=== PATIENT | male | born 1975 | race Caucasian/White ===

== ENCOUNTER → 2019-11-17 14:23 | Outpatient (CLI) | payer OTHER, SELFPAY | PROVIDERS: Visit Provider Physician Assistant | DX: J02.9 Acute pharyngitis, unspecified (principal) | CPT/HCPCS: 87070 ==

== ENCOUNTER 2019-12-05 23:23 | Emergency (ER) | payer OTHER, SELFPAY ==
--- NOTE | 2019-12-05 23:33 | DI.CT.S_ITS ---
PROCEDURE: CT HEAD/BRAIN WO CON INDICATIONS: syncope x2 TECHNIQUE: Noncontrast 4.5 mm thick angled axial sections acquired from the foramen magnum to the vertex, with coronal and sagittal reformats. For radiation dose reduction, the following was used: automated exposure control, adjustment of mA and/or kV according to patient size. COMPARISON: [facility], MR, BRAIN W&WO CONTRAST, 01/30/2013, 18:26. FINDINGS: Image quality: Diagnostic. CSF spaces: Basal cisterns are patent. No extra-axial fluid collections. Ventricles are normal in size and shape. Brain: No midline shift. No intracranial masses or hemorrhage. Donald-white matter interface is normal. Skull and face: Calvarium and visualized facial bones are intact, without suspicious lesions. Sinuses: Visualized sinuses and mastoids are clear. IMPRESSION: Negative head CT. No acute intracranial hemorrhage. Note: The preliminary report provided by [facility] is concordant with the final report. Dictated by: Dean Novak M.D. on 12/06/2019 at 8:35 Approved by: Dean Novak M.D. on 12/06/2019 at 8:37
--- NOTE | 2019-12-05 23:33 | DI.RAD.S_ITS ---
PROCEDURE: XR CHEST 1V INDICATIONS: syncope x2 TECHNIQUE: One view of the chest was acquired. COMPARISON: None. FINDINGS: Surgical changes and devices: None. Lungs and pleura: Lungs are clear. No pleural effusions or pneumothorax. Mediastinum: Mediastinal contours appear normal. Heart size is normal. Bones and chest wall: No suspicious bony lesions. Overlying soft tissues appear unremarkable. IMPRESSION: Negative chest. No acute cardiopulmonary process is evident. Dictated by: Dean Novak M.D. on 12/06/2019 at 0:31 Approved by: Dean Novak M.D. on 12/06/2019 at 0:31
[2019-12-05 23:35] VITALS: BP 111/74; PULSE 83; RESP 17; TEMP 36.4; O2SAT 98; BMI 30.6
[2019-12-05 23:49] LABS: Add Manual Diff / Slide Review NO; Basophils Absolute Auto 100 /uL (0-100); Eosinophils Absolute Auto 100 /uL (0-450); Eosinophils Percent Auto 0.7 % (2-4); Hematocrit 43.2 % (41-53); Hemoglobin 14.8 g/dL (13.5-17.5); Lymphocytes Absolute Auto 1800 /uL (1100-4500); Lymphocytes Percent Auto 20.1 % (25-40); Mean Corpuscular HGB Conc 34.3 % (30-36); Mean Corpuscular Hemoglobin 30.7 PG (26-34); Mean Corpuscular Volume 89.7 fL (80-100); Monocytes Absolute Auto 600 /uL (0-900); Monocytes Percent Auto 6.6 % (3-14); Neutrophils Absolute Auto 6300 /uL (1500-7000); Neutrophils Percent Auto 71.6 % (50-75); Platelet Count 281 X10^3/uL (150-400); Red Blood Cell Count 4.82 X10^6/uL (4.5-5.9); Red Cell Distribution Width 13.5 % (11.6-14.8); White Blood Cell Count 8.8 X10^3/uL (4.5-11.0)
[2019-12-06] LABS: Alanine Aminotransferase 22 IU/L (<50); Albumin 4.4 g/dL (3.5-5.0); Albumin Globulin Ratio 1.4 (1.0-2.8); Alkaline Phosphatase 81 U/L (38-126); Aspartate Aminotransferase 28 IU/L (17-59); Bilirubin Total 0.6 mg/dL (0.2-1.3); Blood Urea Nitrogen 22 mg/dL (9-20); Calcium 8.9 mg/dL (8.4-10.2); Carbon Dioxide 25 mmol/L (22-32); Chloride 101 mmol/L (98-107); Creatine Kinase 94 U/L (55-170); Estimated Glomerular Filt Rate > 60.0 mL/min (>60); Globulin 3.1 g/dL (1.7-4.1); Glucose 150 mg/dL (70-100); HEMOLYSIS 20 (0-50); Magnesium 2.2 mg/dL (1.6-2.3); Potassium 3.7 mmol/L (3.4-5.1); Sodium 139 mmol/L (137-145); Total Protein 7.5 g/dL (6.3-8.2)
[2019-12-06 00:03] LABS: Ethanol (ETOH) 145 mg/dL
[2019-12-06] MEDS: SODIUM CHLORIDE 0.9% 1,000 ML 1000 ML IV (00:07)
[2019-12-06 00:12] LABS: Troponin I < 0.012 ng/mL (0.01-0.034)
--- NOTE | 2019-12-06 00:39 | ED_ITS ---
HPI - Syncope General Chief Complaint: Syncope Stated Complaint: Syncope Time Seen by Provider: 12/06/19 00:38 Source: patient and EMS Mode of arrival: EMS History of Present Illness HPI narrative: Chief complaint: Syncope History of present illness: The patient is a 44-year-old male who was had a bar drinking alcohol slipped fell twisting in tweaking his right knee. He denied any head trauma or head injury. However he had pain and discomfort and briefly passed out. The patient later approximately 30 minutes was standing outside with some friends leaning up against a refrigerator when he again passed out. He denies any racing of his heart palpitations dizziness or heart murmur. He admits to drinking alcohol every day. He smokes cigarettes and marijuana but does not use any other drugs. The 2nd time when he passed out he felt lightheaded. However he did not have any headache. He complains of mild discomfort in his right knee. He denies any headache numbness tingling paresthesias and dysesthesias or paresis. He has had no troubles with his vision no change in vision loss of vision or diplopia. He denies any chest pain cough shortness of breath abdominal pain nausea or vomiting. He however states that he has had diarrhea without melena or hematochezia for the last several days prior to admission. The patient has also been fasting trying to lose weight eating only 1 meal per day. He denies any urinary symptoms. Related Data Home Medications Medication Instructions Recorded Confirmed multivitamin [Multiple Vitamins] 1 tab PO QDAY #0 07/25/17 11/17/19 Previous Rx's Medication Instructions Recorded amoxicillin 875 mg-potassium 1 tab PO BID #20 tab 11/17/19 clavulanate 125 mg tablet loperamide 2 mg PO Q4H PRN #14 tab 12/06/19 naproxen [Naprosyn] 500 mg PO BID PRN #20 tab 12/06/19 Allergies Allergy/AdvReac Type Severity Reaction Status Date / Time No Known Allergies Allergy Uncoded 11/17/19 13:56 Review of Systems Review of Systems ROS Unobtainable: All systems reviewed & are unremarkable except as noted in HPI and below Patient History Medical History Pharyngitis (Acute) Social History Smoking Status: Current some day smoker Smoking Status: Current some day smoker alcohol intake frequency: 3 or more drinks per day Alcohol type: beer Substance Use Type: marijuana Exam Narrative Exam Narrative: PHYSICAL EXAM: CONSTITUTIONAL: Awake, Alert, Oriented, Coherent, Cooperative in NAD. Does not appear toxic or ill. HEAD: AT/NC EENT: PERRL, FROM of eyes, no discharge, with a mild horizontal nystagmus. No drainage from the ears, Tympanic membranes intact bilaterally, clear EAC No epistaxis or nasal drainage Oral mucosa is moist and pink, posterior pharynx is without erythema or exudate. NECK: Supple, no obvious JVD, Trachea is midline without stridor, no palpable LN or masses. SPINE: No gross deformity, no palpable tenderness of the cervical, thoracic, lumbar or sacral spine. No CVA tenderness. THORAX: No deformity, retractions, chest wall tenderness, subcutaneous air or crepitice. LUNGS: Clear with symmetrical breath sounds without respiratory distress HEART: Normal heart tones, regular rhythm and rate without murmur. ABDOMEN: Soft, non-tender, normal bowel sounds without guarding, rebound, rigidity or palpable mass or organomegaly. EXTREMITIES: No edema, cyanosis, deformity or tenderness. The patient has full flexion extension of his right knee. The patient is tender to palpation along the medial joint line and the medial condyle of the femur as the quadriceps in tarts. There is no gross swelling erythema or bruising noted at this time. SKIN: No rash, bruising, petechiae or purpura. NEURO: Awake, alert, oriented, conversive, cranial nerves II-XII are symmetrical and normal, moves all 4 extremities and is ambulatory Initial Vital Signs Initial Vital Signs: Vital Signs Temperature 97.6 F 12/05/19 23:35 Pulse Rate 83 12/05/19 23:35 Respiratory Rate 17 12/05/19 23:35 Blood Pressure 111/74 12/05/19 23:35 Pulse Oximetry 98 12/05/19 23:35 Course Course Course Narrative: [address] reveals no acute disease in the brain no acute pathology or trauma. The patient's syncope is secondary to dehydration fasting and his alcohol intoxication. I will discuss with the patient and the princess baer who just entered the room to see whether not she will take him. 0325 examination of the patient's right knee the patient has full flexion and extension over the medial side superior knee is tender over the insertion of the quadriceps. The patient is tender over palpation over the medial joint line. The patient appears to have an acute sprain of the knee. It will need to be re- evaluated after the acute injury to test the for fall laxity of the joint. The lady with the patient is willing to accept responsibility and dump take the patient home. Orders Ordered: Discontinued Medications Sodium Chloride (Normal Saline 0.9%) 1,000 mls @ 1,000 mls/hr IV BOLUS ONE Stop: 12/06/19 00:32 Last Infusion: 12/06/19 02:33 Dose: 0 mls/hr Documented by: Admin: 12/06/19 00:07 Dose: 1,000 mls/hr Documented by: OFELIA Vital Signs Vital signs: Vital Signs - 8 hr 12/05/19 23:35 12/06/19 01:00 12/06/19 01:27 Temperature 97.6 F Pulse Rate 83 88 Pulse Rate [Orthostatic Lying] 94 H Pulse Rate [Orthostatic Sitting] 99 H Pulse Rate [Orthostatic Standing] 91 H Respiratory Rate 17 23 Blood Pressure 111/74 Blood Pressure [Left Arm] 143/80 H Blood Pressure [Orthostatic Lying] 137/84 Blood Pressure [Orthostatic Sitting] 136/81 Blood Pressure [Orthostatic Standing] 130/87 Pulse Oximetry 98 100 MDM - Syncope Medical Records Attestation: I reviewed the patient's medical records. Lab Data Attestation: I reviewed the patient's lab results. Result diagrams: 12/05/19 23:40 12/05/19 23:40 Labs: Lab Results 12/05/19 12/05/19 Range/Units 23:40 23:40 WBC 8.8 (4.5-11.0) X10^3/uL RBC 4.82 (4.5-5.9) X10^6/uL Hgb 14.8 (13.5-17.5) g/dL Hct 43.2 (41-53) % MCV 89.7 (80-100) fL MCH 30.7 (26-34) PG MCHC 34.3 (30-36) % RDW 13.5 (11.6-14.8) % Plt Count 281 (150-400) X10^3/uL Neut % (Auto) 71.6 (50-75) % Lymph % (Auto) 20.1 L (25-40) % Ralls % (Auto) 6.6 (3-14) % Eos % (Auto) 0.7 L (2-4) % Baso % (Auto) 1.0 (0-2) % Neut # (Auto) 6300 (1323-1060) /uL Lymph # (Auto) 1800 (3607-3791) /uL Ralls # (Auto) 600 (0-900) /uL Eos # (Auto) 100 (0-450) /uL Baso # (Auto) 100 (0-100) /uL Sodium 139 (137-145) mmol/L Potassium 3.7 (3.4-5.1) mmol/L Chloride 101 (98-107) mmol/L Carbon Dioxide 25 (22-32) mmol/L BUN 22 H (9-20) mg/dL Creatinine 1.10 (0.66-1.25) mg/dL Estimated GFR > 60.0 (>60) mL/min BUN/Creatinine Ratio 20.0 (6-22) Glucose 150 H (70-100) mg/dL Calcium 8.9 (8.4-10.2) mg/dL Magnesium 2.2 (1.6-2.3) mg/dL Total Bilirubin 0.6 (0.2-1.3) mg/dL AST 28 (17-59) IU/L ALT 22 (<50) IU/L Alkaline Phosphatase 81 (38-126) U/L Total Creatine Kinase 94 (55-170) U/L CK-MB (CK-2) TNP CK-MB (CK-2) Rel Index TNP Troponin I < 0.012 (0.01-0.034) ng/mL Total Protein 7.5 (6.3-8.2) g/dL Albumin 4.4 (3.5-5.0) g/dL Globulin 3.1 (1.7-4.1) g/dL Albumin/Globulin Ratio 1.4 (1.0-2.8) Ethyl Alcohol 145 H ( - 10) mg/dL ECG Data Attestation: I personally reviewed and interpreted this ECG as follows: MDM Narrative Medical decision making narrative: The patient's EKG obtained at 23:3 12:53 a.m. reveals a sinus rhythm with a ventricular rate of 75. The patient has low voltage QRS in his precordial leads. Intervals are normal. QTC is normal at 408 milliseconds. The patient has a normal access. T-waves are inverted in herson ds V1. Otherwise there are no acute diagnostic ST segment changes. The patient has an incomplete right bundle branch block with a QRS of 109 milliseconds. Discharge Plan Departure Patient Disposition: Home Clinical Impression: Dehydration Diarrhea Qualifiers: Diarrhea type: unspecified type Qualified Code(s): R19.7 - Diarrhea, unspecified Alcohol intoxication Qualifiers: Complication of substance-induced condition: with unspecified complication Qualified Code(s): F10.929 - Alcohol use, unspecified with intoxication, unspecified Syncope Qualifiers: Syncope type: unspecified Qualified Code(s): R55 - Syncope and collapse Right knee sprain Qualifiers: Encounter type: initial encounter Involved ligament of knee: unspecified ligament Qualified Code(s): S83.91XA - Sprain of unspecified site of right knee, initial encounter Discharge Date/Time: 12/06/19 04:40 Instructions: DI for Syncope in Adults (Fainting), Diarrhea, Alcohol Use Disorder, DI for Dehydration -- Adult Activity Restrictions/Additional Instructions: It will take 78 hours for your alcohol to completely clear your system. For the pain and discomfort use Naprosyn 500 mg twice a day. For dehydration you need to drink 2-3 L of fluid per day. You need to follow-up with your primary care physician to re-evaluate your knee. To keep it from swelling we will wrap it with an Flaco wrap. For your tail bone discomfort obtain a comfort donut to sit if the discomfort continues. Prescriptions: New naproxen [Naprosyn] 500 mg tablet 500 mg PO BID PRN (Reason: pain) Qty: 20 RF: 0 loperamide 2 mg tablet 2 mg PO Q4H PRN (Reason: loose stool) Qty: 14 RF: 0 No Action amoxicillin-pot clavulanate [Augmentin] 875-125 mg tablet 1 tab PO BID Qty: 20 RF: 0 multivitamin [Multiple Vitamins] 1 EACH tablet 1 tab PO QDAY Qty: 0 RF: 0 Referrals: Rc Love MD [Primary Care Provider] -
[2019-12-06 01:00] VITALS: BP 143/80; PULSE 88; RESP 23; O2SAT 100
[2019-12-06 01:27] VITALS: BP 130/87; BP 136/81; BP 137/84; PULSE 91; PULSE 94; PULSE 99
[2019-12-06 03:30] VITALS: BP 141/84; PULSE 88; RESP 17; O2SAT 96
[2019-12-06 04:40] VITALS: BP 138/85; PULSE 98; RESP 15; O2SAT 97
== END 2019-12-06 04:40 | disposition home or self-care (01) ==
PROVIDERS: Emergency Provider Emergency Medicine; PCP Family Medicine
DX: E86.0 Dehydration (principal); R19.7 Diarrhea, unspecified; F10.929 Alcohol use, unspecified with intoxication, unspecified; R55 Syncope and collapse; S83.91XA Sprain of unspecified site of right knee, initial encounter
CPT/HCPCS: 36415; 70450; 71045; 80053; 80320; 82550; 82553; 83735; 84484; 85025; 93005; 96360; 96361; 99284; 99285

== ENCOUNTER → 2023-04-22 15:27 | Outpatient (CLI) | payer OTHER, SELFPAY ==
--- NOTE | 2023-04-22 | DI.US.S_ITS ---
PROCEDURE: US ABDOMEN LIMITED INDICATIONS: UMBILICUS LUMP ?HERNIA TECHNIQUE: Real-time scanning was performed of the umbilicus, with image documentation. COMPARISON: None. FINDINGS: Targeted ultrasound of the umbilicus demonstrates a fat containing, partially reducible hernia. The neck measures 2.2 x 1.9 cm. The sac measures 3.6 x 3.8 x 1.5 cm. IMPRESSION: Fat containing, partially reducible hernia. Dictated by: Jose Bhatia M.D. on 04/22/2023 at 16:55 Approved by: Jose Bhatia M.D. on 04/22/2023 at 16:55
== END ==
PROVIDERS: PCP Family Medicine; Referring Provider Family Medicine; Visit Provider Family Medicine
DX: K42.9 Umbilical hernia without obstruction or gangrene (principal)
CPT/HCPCS: 76705

== ENCOUNTER 2023-05-01 07:18 | Day surgery (SDC) | payer OTHER, SELFPAY ==
[2023-04-26 08:45] VITALS: BMI 33.0
[2023-05-01] VITALS (9 sets, daily range): BP systolic 114–152; BP diastolic 74–99; PULSE 14–89; RESP 14–18; TEMP 35.8–36.6; O2SAT 92–96; BMI 33.0
[2023-05-01] MEDS: LACTATED RINGERS 1,000 ML 100 ML IV ×2 (08:10→09:44)
--- NOTE | 2023-05-01 08:32 | PM.PREOP ---
Pre-operative Note Interval Note History & Physical reviewed/Exam performed by Physician: Yes Changes to H&P: No
--- NOTE | 2023-05-01 08:49 | P.OP_ITS ---
Operative Date/Time/Diagnoses Date of procedure: 05/01/23 Time of procedure: 08:49 Pre-op diagnosis: ventral hernia colorectal screening Post-op diagnosis: same Procedure & Clinicians Procedure: open ventral hernia repair ( cm) colonoscopy Same procedure as scheduled: Yes Indications: symptomatic ventral hernia Surgeon: Robson Taylor Click Yes if Unassisted: Yes Anesthesia Type: General Operative Notes Findings: 5 cm fascial defects superior to the umbilicus Specimen(s): none sent Estimated Blood Loss (mL): 25 Procedure in detail: Patient was brought to the operating room placed supine on the table. Bilateral lower extremity compression devices were applied. General anesthesia was induce d he was intubated with an endotracheal tube. He received Ancef prior to skin incision. Time-out was performed. He was prepped and draped in sterile fashion. A vertical midline incision was made just superior to the umbilicus. The subcutaneous tissue was divided. We encountered the hernia defect which was approximately 5 cm in length. The defect was coming from just superior to the umbilicus. Fascia was opened the hernia sac was excised. It contained omentum only. The adhesions to the anterior abdominal wall were taken down in order to clear space for the mesh. The 8 x 12 Bard Ventralex mesh was then placed into the abdominal cavity with the anti-adhesive surface down. This provided excellent overlap in all directions. The mesh was then secured to the fascia using interrupted Ethibond suture. The fascia was then closed over the mesh with interrupted Ethibond suture. Subcutaneous tissue was reapproximated with 3-0 Vicryl and the skin was closed with a running Monocryl suture followed by Dermabond. He tolerated the procedure well. Next the colonoscopy was performed. The colonoscope was inserted into the rectum and was advanced forward to the cecum. The scope was then slowly withdrawn examining the mucosal folds in all directions. The colon was notable only for sigmoid diverticulosis. There were no polyps or masses. The withdrawal time was 7 minutes. Complications: none Post-operative Condition: stable Disposition: same day surgery
[2023-05-01] MEDS: CEFAZOLIN 2 GM/100 ML PREMIX 100 ML IV (08:55)
[2023-05-01] MEDS: BUPIVACAINE 0.25% (PF) VIAL 30 ML INJ (09:05)
--- NOTE | 2023-05-01 09:06 | SUR.OPER ---
Supine on padded OR bed, head on gel donut, arms secured on padded arm boards at <90 degrees abduction, legs uncrossed, safety belt at thigh, tape over blanket over lower legs.
[2023-05-01] MEDS: OXYCODONE/ACETAMINOPHEN 5/325 TABLET 1 TAB PO ×2 (10:43→10:59)
== END 2023-05-01 11:50 | disposition home or self-care (01) ==
PROVIDERS: PCP Family Medicine; Referring Provider Surgery; Visit Provider Surgery
PROC: (CPT 49593; principal; 2023-05-01 08:45)
PROC: 0DJD8ZZ Inspection of Lower Intestinal Tract, Via Natural or Artificial Opening Endoscopic (ICD-10-PCS; CPT 45378; 2023-05-01 08:45)
DX: K43.9 Ventral hernia without obstruction or gangrene (principal); Z12.11 Encounter for screening for malignant neoplasm of colon; K57.30 Diverticulosis of large intestine without perforation or abscess without bleeding
CPT/HCPCS: 49593; 45378; 82962; J0330; J0690; J1100; J1885; J2405; J2704; J3010; J3490

== ENCOUNTER 2023-05-03 05:37 | Emergency (ER) | payer OTHER, SELFPAY ==
[2023-05-03 05:42] VITALS: BP 139/85; PULSE 93; RESP 18; TEMP 36.2; O2SAT 97; BMI 33.0
--- NOTE | 2023-05-03 05:46 | ED.ABDPAIN ---
HPI - Abdominal Pain General Chief Complaint: Abdominal Pain Stated Complaint: constipated post hernia surgery Time Seen by Provider: 05/03/23 05:44 Source: patient Mode of arrival: Ambulatory Limitations: no limitations History of Present Illness HPI narrative: This is a 47-year-old male 2 days postop from ventral hernia repair on 05/01/2023. Patient states he has not had a bowel movement since his hernia surgery. He states he has been drinking fluids eating small meals and taking medication to help him have bowel movements. He states he has been avoiding any narcotics to prevent movement of his bowels. He states he does not feel like there is any stool in the rectal vault but that things are higher up and he is become increasingly distended with increasing abdominal pain and discomfort. He denies fevers but states he got very sweaty this morning when he tried to have a bowel movement. He denies chest pain or pressure, no shortness of breath. He denies any nausea or vomiting. He states he has been passing gas. Patient states no dysuria urgency or frequency or urinary retention. No back or flank pain. His bandage over his incision does have some blood he thinks that maybe new today. Patient has not appreciate any drainage or leakage outside of the bandage. Are some color changes inferior to the incision and he states he did not note if those are new or occurred after the surgery. Patient states no daily medications. He states remote history of appendectomy. Denies tobacco, alcohol or illicit. Denies any drug allergies. Dr. Taylor performed his surgery. Related Data Home Medications Medication Instructions Recorded Confirmed fluticasone propionate 50 1 spray intranasal DAILY 04/25/23 05/01/23 mcg/actuation nasal spray,suspension Previous Rx's Medication Instructions Recorded acetaminophen 325 mg capsule 650 mg PO QID PRN pain #60 caps 05/01/23 (Tylenol) docusate sodium 100 mg capsule 100 mg PO BID #30 caps 05/01/23 (Colace) ibuprofen 200 mg tablet 400 mg PO Q6H #60 tabs 05/01/23 oxycodone 5 mg tablet 5 mg PO Q6H PRN pain #20 tabs 05/01/23 Allergies Allergy/AdvReac Type Severity Reaction Status Date / Time No Known Allergies Allergy Uncoded 04/25/23 15:18 Review of Systems Review of Systems ROS Unobtainable: All systems reviewed & are unremarkable except as noted in HPI and below Patient History Medical History Pharyngitis Surgical History History of appendectomy Hx of tonsillectomy Social History marital status: unmarried,single details: LIVES WITH SON household members: friend(s) lives independently: Yes occupational status: employed Smoking Status: Former smoker alcohol intake: current substance use type: does not use Smoking Status: Former smoker alcohol intake frequency: a few times a week Alcohol type: beer Substance Use Type: does not use Exam Narrative Exam Narrative: GENERAL: Alert and oriented x three, obese male in [id number] distress. HEENT: Head normocephalic, atraumatic, EOMI, pupils reactive, face symmetric, moist mucous membranes NECK: Supple, full range of motion CARDIOVASCULAR: Regular rate and rhythm without murmurs, rubs or gallops. RESPIRATORY: Breath sounds equal bilaterally, no wheezes rales or rhonchi. ABDOMEN: Soft, distended. Patient has [id number] lower abdominal tenderness. Hypoactive bowel sounds all 4 quadrants. No guarding or rebound, rigidity, no mass, patient has been line incision appears intact but there is some serosanguineous drainage proximally 10 mL at the umbilicus area. I can not appreciate any obvious dehiscence but incision does track over the umbilicus. No purulent drainage. Small amount of drainage occurs when pressing on the abdomen. Patient does have what appears to be some ecchymosis but is more erythematous in discoloration of the lower abdomen extending about 10 cm bilaterally by about 5 cm. No warmth. No fluctuance. : No CVA tenderness EXTREMITIES: Normal range of motion, no clubbing or edema. Neurovascularly intact NEUROLOGICAL: Cranial nerves II through XII grossly intact. Moving all extremities SKIN: Warm, dry, no petechiae, no rashes or lesions otherwise noted. Initial Vital Signs Initial Vital Signs: Vital Signs Temperature 97.1 F L 05/03/23 05:42 Pulse Rate 93 H 05/03/23 05:42 Respiratory Rate 18 05/03/23 05:42 Blood Pressure 139/85 05/03/23 05:42 Pulse Oximetry 97 05/03/23 05:42 Oxygen Delivery Method Room Air 05/03/23 05:42 Course Orders Ordered: Discontinued Medications Sodium Chloride (Normal Saline 0.9%) 1,000 mls @ 1,000 mls/hr IV BOLUS ONE Stop: 05/03/23 06:57 Last Infusion: 05/03/23 07:12 Dose: 0 mls/hr Documented By: Admin: 05/03/23 06:09 Dose: 1,000 mls/hr Documented By: [facility] Vital Signs Vital signs: Vital Signs - 8 hr 05/03/23 05:42 Temperature 97.1 F L Pulse Rate 93 H Respiratory Rate 18 Blood Pressure 139/85 Pulse Oximetry 97 Oxygen Delivery Method Room Air MDM - Abdominal Pain Lab Data 05/03/23 06:05 05/03/23 06:05 Labs: Lab Results 05/03/23 05/03/23 Range/Units 06:05 06:05 WBC 10.7 (4.5-11.0) X10^3/uL RBC 4.89 (4.5-5.9) X10^6/uL Hgb 14.7 (13.5-17.5) g/dL Hct 42.2 (41-53) % MCV 86.3 (80-100) fL MCH 30.0 (26-34) PG MCHC 34.8 (30-36) % RDW 13.8 (11.6-14.8) % Plt Count 238 (150-400) X10^3/uL Neut % (Auto) 72.7 (50-75) % Lymph % (Auto) 20.1 L (25-40) % [place] % (Auto) 5.8 (3-14) % Eos % (Auto) 0.6 L (2-4) % Baso % (Auto) 0.8 (0-2) % Neut # (Auto) 7800 H (3703-9305) /uL Lymph # (Auto) 2200 (7332-0982) /uL [place] # (Auto) 600 (0-900) /uL Eos # (Auto) 100 (0-450) /uL Baso # (Auto) 100 (0-100) /uL Sodium 137 (137-145) mmol/L Potassium 3.7 (3.4-5.1) mmol/L Chloride 104 (98-107) mmol/L Carbon Dioxide 23 (22-32) mmol/L BUN 15 (9-20) mg/dL Creatinine 0.94 (0.66-1.25) mg/dL Estimated GFR > 60 (>60) mL/min BUN/Creatinine Ratio 16.0 (6-22) Glucose 116 H (70-100) mg/dL Calcium 8.6 (8.4-10.2) mg/dL Total Bilirubin 0.7 (0.2-1.3) mg/dL AST 29 (17-59) IU/L ALT 31 (<50) IU/L Alkaline Phosphatase 68 (38-126) U/L Total Protein 7.3 (6.3-8.2) g/dL Albumin 4.2 (3.5-5.0) g/dL Globulin 3.1 (1.7-4.1) g/dL Albumin/Globulin Ratio 1.4 (1.0-2.8) Lipase 74 (23-300) U/L Imaging Data CT scan - abdomen/pelvis: Radiologist's Impression: Mild wall thickening of small bowel G since a recent surgical site could represent edema or enteritis, no recurrent or residual hernia no high-grade bowel obstruction appreciated small amount of gas and fluid in the anterior abdominal wall appears within normal limits at 3 days postoperative. Small amount of free fluid in the right pericolic gutter and right lower quadrant. [facility] Narrative Medical decision making narrative: This is a 47 old male who presents with complaint of 2 days postop from ventral hernia repair with constipation increasing distention abdominal pain. On examination patient's incision does appear to be intact but there is a small amount of bloody drainage. Patient has quite a bit of bruising just below the abdomen. No obvious cellulitis. Patient got quite sweaty this morning and decision for labs, fluids and imaging was made. Labs are overall appropriate, patient was given fluids, CT shows some mild wall thickening small bowel adjacent to surgical site could be edema versus enteritis but no recurrent hernia high-grade bowel obstruction and gas and fluid in the anterior wall appear normal limits for 3 days postop. Patient notes no sensation of stool in rectal vault, all seems higher up. Labs glucose of 116 no other major abnormalities. Imaging was reviewed with patient. Discussed with patient to continue fluids, bowel regimen and return precautions. Patient feeling improved in department. Comfortable with plan. Discharge Plan Departure Patient Disposition: Home Clinical Impression: Constipation, Status post hernia repair Instructions: DI for Constipation Activity Restrictions/Additional Instructions: Follow-up for recheck. Continue with Colace twice daily, I would recommend adding MiraLax as well. It may be helpful to add a glycerin suppository if you feel there stool at the rectal opening. Gentle movement and walking can also aid bowel movements. Make sure you are drinking plenty of fluids and eating high-fiber foods. Please return for fevers, worsening abdominal pain, vomiting, if you are not having a bowel movement and not passing any gas or flatus, few have any redness, swelling or increasing drainage from your incision. Prescriptions: No Action fluticasone propionate 50 mcg/actuation spray,suspension 1 spray intranasal DAILY Rx Instructions: administer into each nostril docusate sodium [Colace] 100 mg capsule 100 mg PO BID Qty: 30 0RF ibuprofen 200 mg tablet 400 mg PO Q6H Qty: 60 0RF oxycodone 5 mg tablet 5 mg PO Q6H PRN (Reason: pain) Qty: 20 0RF acetaminophen [Tylenol] 325 mg capsule 650 mg PO QID PRN (Reason: pain) Qty: 60 0RF Referrals: Niles Dumont MD [Primary Care Provider] - Stand Alone Forms: Patient Portal/API
--- NOTE | 2023-05-03 05:58 | DI.CT.S_ITS ---
PROCEDURE: CT ABDOMEN PELVIS W CON INDICATIONS: constipation, POD#3 hernia repair, sweaty, pain TECHNIQUE: After the administration of IV contrast, axial sections were acquired from the lung bases to the pubic symphysis. Coronal and sagittal reformats were performed. For radiation dose reduction, the following was used: automated exposure control, adjustment of mA and/or kV according to patient size. COMPARISON: [facility], CT, ABDOMEN/PELVIS WITH CONTRAST, 09/20/2010, 9:33. [facility], US, US ABDOMEN LIMITED, 04/22/2023, 15:45. FINDINGS: Image quality: Excellent. Lung bases: Unremarkable. Heart: No significant findings. ABDOMEN: Liver: Hepatic steatosis. Gallbladder: Unremarkable. Biliary ducts: Unremarkable. Pancreas: Unremarkable. Spleen: Unremarkable. Adrenal Glands: Unremarkable. Kidneys and Ureters: Unremarkable. Stomach and Bowel: Mild scattered fluid-filled small bowel prominence. There is mild appearance of thickening of small bowel in the anterior abdomen at the site of presumed prior for surgical hernia repair. Mild scattered fluid is present in the right pericolic gutter and lower quadrant. Ventral Wall: Foci of air in fluid are noted in the anterior abdominal wall appearing to be site of recent surgery. Abdominal Nodes: No retroperitoneal or mesenteric adenopathy by size criteria. Vessels: Aorta and inferior vena cava are normal in size. PELVIS: Pelvic Organs: Unremarkable. Bladder: Unremarkable. Pelvic Nodes: No enlarged lymph nodes. Miscellaneous: No inguinal hernias are seen. Bones: Unremarkable. IMPRESSION: Fluid and air in the subcutaneous fat at the site of presumed previous ventral hernia repair. There is mild appearance of small bowel thickening at the margin of the repair possibly related to edema or enteritis. Overall more proximal bowel gas pattern is nonspecific and could be off premise service representative of ileus. If concern persists for developing obstruction, short interval imaging follow-up is recommended. Dictated by: Tamika Gunter M.D. on 05/03/2023 at 12:15 Approved by: Tamika Gunter M.D. on 05/03/2023 at 12:20
[2023-05-03] MEDS: SODIUM CHLORIDE 0.9% 1,000 ML 1000 ML IV (06:09)
[2023-05-03 06:11] LABS: Add Manual Diff / Slide Review NO; Basophils Absolute Auto 100 /uL (0-100); Basophils Percent Auto 0.8 % (0-2); Eosinophils Absolute Auto 100 /uL (0-450); Eosinophils Percent Auto 0.6 % (2-4); Hematocrit 42.2 % (41-53); Hemoglobin 14.7 g/dL (13.5-17.5); Lymphocytes Absolute Auto 2200 /uL (1100-4500); Lymphocytes Percent Auto 20.1 % (25-40); Mean Corpuscular HGB Conc 34.8 % (30-36); Mean Corpuscular Volume 86.3 fL (80-100); Monocytes Absolute Auto 600 /uL (0-900); Monocytes Percent Auto 5.8 % (3-14); Neutrophils Absolute Auto 7800 /uL (1500-7000); Neutrophils Percent Auto 72.7 % (50-75); Platelet Count 238 X10^3/uL (150-400); Red Blood Cell Count 4.89 X10^6/uL (4.5-5.9); Red Cell Distribution Width 13.8 % (11.6-14.8); White Blood Cell Count 10.7 X10^3/uL (4.5-11.0)
--- NOTE | 2023-05-03 06:15 | PC.NURSE ---
New dressing placed on incision per Dr. Uriostegui's request
[2023-05-03 06:24] LABS: Alanine Aminotransferase 31 IU/L (<50); Albumin 4.2 g/dL (3.5-5.0); Albumin Globulin Ratio 1.4 (1.0-2.8); Alkaline Phosphatase 68 U/L (38-126); Aspartate Aminotransferase 29 IU/L (17-59); Bilirubin Total 0.7 mg/dL (0.2-1.3); Blood Urea Nitrogen 15 mg/dL (9-20); Calcium 8.6 mg/dL (8.4-10.2); Carbon Dioxide 23 mmol/L (22-32); Chloride 104 mmol/L (98-107); Estimated Glomerular Filt Rate > 60 mL/min (>60); Globulin 3.1 g/dL (1.7-4.1); Glucose 116 mg/dL (70-100); HEMOLYSIS < 15 (0-50); Lipase 74 U/L (23-300); Potassium 3.7 mmol/L (3.4-5.1); Sodium 137 mmol/L (137-145); Total Protein 7.3 g/dL (6.3-8.2)
[2023-05-03 07:15] VITALS: BP 137/84; PULSE 82; RESP 16; O2SAT 98
== END 2023-05-03 07:13 | disposition home or self-care (01) ==
PROVIDERS: Emergency Provider Emergency Medicine; PCP Family Medicine
DX: R10.9 Unspecified abdominal pain (principal); K59.00 Constipation, unspecified; Z98.890 Other specified postprocedural states
CPT/HCPCS: 36415; 74177; 80053; 83690; 85025; 99284; Q9967

== ENCOUNTER → 2023-05-18 11:21 | Outpatient (CLI) | payer OTHER, SELFPAY | PROVIDERS: PCP Family Medicine; Visit Provider Nurse Practitioner Family | DX: L08.9 Local infection of the skin and subcutaneous tissue, unspecified (principal); T14.8XXA Other injury of unspecified body region, initial encounter | CPT/HCPCS: 87070; 87077; 87147; 87186; 87205 ==

== ENCOUNTER 2023-06-01 09:16 | Emergency (ER) | payer OTHER, SELFPAY ==
[2023-06-01 09:18] VITALS: BP 158/117; PULSE 85; RESP 14; TEMP 36.1; O2SAT 96; BMI 33.0
--- NOTE | 2023-06-01 09:27 | ED_ITS ---
HPI - Extremity Injury (Lower) General Chief Complaint: Extremity Injury, Lower Stated Complaint: Left Calf Muscle Pop Time Seen by Provider: 06/01/23 09:19 Source: patient Mode of arrival: Ambulatory History of Present Illness HPI Narrative: Patient is a 47-year-old male. A couple weeks ago he developed a postoperative wound infection after a hernia surgery. He was started on Bactrim. His symptoms were not improving. He followed up with his general surgeon. Was started on Levaquin. Culture results of this shows a pansensitive staph infection. He is completed a course of Levaquin. He followed up with his general surgeon yesterday. Things were improving but not completely resolved so the decision was to complete another week of Levaquin. Today he states he was walking and had some tingling and then felt a pop in his left calf muscle. Since then he is had quite a bit of difficulty and pain with walking and inability to fully extend his leg. The pain is at the top of his left calf muscle. He is never had any injuries to this area in the past. Related Data Home Medications Medication Instructions Recorded Confirmed fluticasone propionate 50 1 spray intranasal DAILY 04/25/23 05/31/23 mcg/actuation nasal spray,suspension Previous Rx's Medication Instructions Recorded acetaminophen 325 mg capsule 650 mg PO QID PRN pain #60 caps 05/01/23 (Tylenol) docusate sodium 100 mg capsule 100 mg PO BID #30 caps 05/01/23 (Colace) ibuprofen 200 mg tablet 400 mg PO Q6H #60 tabs 05/01/23 oxycodone 5 mg tablet 5 mg PO Q6H PRN pain #20 tabs 05/01/23 levofloxacin 750 mg tablet 750 mg PO DAILY #7 tabs 05/31/23 doxycycline hyclate 100 mg tablet 100 mg PO BID 7 days #14 tabs 06/01/23 Allergies Allergy/AdvReac Type Severity Reaction Status Date / Time No Known Drug Allergies Allergy Verified 06/01/23 09:19 Review of Systems Constitutional Constitutional: Reports system reviewed and no additional complaints, except as documented Musculoskeletal Musculoskeletal: Reports system reviewed and no additional complaints, except as documented Integumentary/Breasts Skin/Breast: Reports system reviewed and no additional complaints, except as documented Neurologic Neurologic: Reports system reviewed and no additional complaints, except as documented Patient History Medical History Pharyngitis Surgical History History of appendectomy Hx of tonsillectomy Social History marital status: unmarried,single details: LIVES WITH SON household members: friend(s) lives independently: Yes occupational status: employed Smoking Status: Former smoker alcohol intake: current substance use type: does not use Smoking Status: Former smoker alcohol intake frequency: a few times a week Alcohol type: beer Substance Use Type: does not use Exam Initial Vital Signs Initial Vital Signs: Vital Signs Temperature 97.0 F L 06/01/23 09:18 Pulse Rate 85 06/01/23 09:18 Respiratory Rate 14 06/01/23 09:18 Blood Pressure 158/117 H 06/01/23 09:18 Pulse Oximetry 96 06/01/23 09:18 Oxygen Delivery Method Room Air 06/01/23 09:18 HENOR Head: normal to inspection and normocephalic Resp Effort & Inspection: normal respiratory effort Skin General: no rashes or lesions noted Neuro Sensory Exam: no sensory deficits noted Extrem Other: Left leg: Patient's Achilles tendon is intact. Hamstring tendons are intact. Quadriceps tendon intact. Patellar tendon intact. He does have fullness of what appears to be either the soleus of the gastrocnemius however no definitive deficit is felt. Course Vital Signs Vital signs: Vital Signs - 8 hr 06/01/23 09:18 Temperature 97.0 F L Pulse Rate 85 Respiratory Rate 14 Blood Pressure 158/117 H Pulse Oximetry 96 Oxygen Delivery Method Room Air [facility] - Extremity Injury (Lower) Medical Records Attestation: I reviewed the patient's medical records. [facility] Narrative Medical decision making narrative: I suspect that the patient has injured his left calf muscle to a degree most likely because of the Levaquin. Unsure as to whether not this is a full muscle tear/ligament tear or just partial. His Achilles tendon and quadriceps tendon and hamstring tendons are intact palpation. The plan will be is to conservatively treat his leg injury for now. He declined the offer for crutches. We will switch his Levaquin to doxycycline. He was instructed to follow-up with orthopedic surgery and follow-up with his general surgeon as directed. Discharge Plan Departure Patient Disposition: Home Clinical Impression: Injury of muscle of left lower leg Instructions: How To Perform RICE (Rest, Ice, Compress, Elevate) Activity Restrictions/Additional Instructions: It is important that you try to limit your activity to include walking on your left leg. Try to keep it elevated as much as possible. You can use ice. Expect some bruising. I also recommend that you stop taking the Levaquin. We are going to start you on a new medicine called doxycycline. This was sent to the pharmacy of your choice. Contact the orthopedic doctors with a number provided below. Return to the emergency department for new or worsening symptoms. Prescriptions: New doxycycline hyclate 100 mg tablet 100 mg PO BID 7 Days Qty: 14 0RF No Action fluticasone propionate 50 mcg/actuation spray,suspension 1 spray intranasal DAILY Rx Instructions: administer into each nostril levofloxacin 750 mg tablet 750 mg PO DAILY Qty: 7 0RF docusate sodium [Colace] 100 mg capsule 100 mg PO BID Qty: 30 0RF ibuprofen 200 mg tablet 400 mg PO Q6H Qty: 60 0RF oxycodone 5 mg tablet 5 mg PO Q6H PRN (Reason: pain) Qty: 20 0RF acetaminophen [Tylenol] 325 mg capsule 650 mg PO QID PRN (Reason: pain) Qty: 60 0RF Referrals: Gris Vang MD [Physician] - Niles Dumont MD [Primary Care Provider] - Stand Alone Forms: Patient Portal/API
== END 2023-06-01 09:38 | disposition home or self-care (01) ==
PROVIDERS: Emergency Provider Emergency Medicine; PCP Family Medicine
DX: S86.902A Unspecified injury of unspecified muscle(s) and tendon(s) at lower leg level, left leg, initial encounter (principal)
CPT/HCPCS: 99281

== ENCOUNTER 2023-09-04 08:06 | Day surgery (SDC) | payer OTHER, SELFPAY ==
[2023-08-29 09:30] VITALS: BMI 33.0
[2023-09-04 08:48] VITALS: BMI 33.6
[2023-09-04] MEDS: ACETAMINOPHEN 325 MG TABLET 975 MG PO (08:57)
[2023-09-04] MEDS: LACTATED RINGERS 1,000 ML 42 ML IV (08:58)
[2023-09-04 08:59] VITALS: BP 146/85; PULSE 90; RESP 16; TEMP 36.1; O2SAT 97
--- NOTE | 2023-09-04 09:42 | P.HP_ITS ---
History of Present Illness History of Present Illness Date Patient Seen: 09/04/23 Time Patient Seen: 09:43 Chief complaint: [facility] Narrative: 47 y.o man with a symptomatic reducible umbilical hernia here for elective repair. No interval change in health. Please refer to H&P from July for further detail [facility] Medical History Pharyngitis Surgical History History of ventral hernia repair (05/01/23) Hx of tonsillectomy History of appendectomy Social History marital status: unmarried,single details: LIVES WITH SON household members: friend(s) lives independently: Yes occupational status: employed Smoking Status: Former smoker alcohol intake: current substance use type: does not use Meds Home Medications and Allergies Home Medications Medication Instructions Recorded Confirmed Type fluticasone propionate 50 1 spray intranasal DAILY 04/25/23 09/04/23 History mcg/actuation nasal spray,suspension acetaminophen 325 mg capsule 650 mg (2 x 325 mg) PO QID PRN 05/01/23 09/04/23 Rx (Tylenol) pain #60 caps docusate sodium 100 mg capsule 100 mg PO BID #30 caps 05/01/23 09/04/23 Rx (Colace) ibuprofen 200 mg tablet 400 mg (2 x 200 mg) PO Q6H #60 tabs 05/01/23 09/04/23 Rx indomethacin 25 mg capsule 25 mg PO DAILY PRN Gout 09/04/23 09/04/23 History Allergies Allergy/AdvReac Type Severity Reaction Status Date / Time levofloxacin [From Levaquin] AdvReac Muscle Pain Verified 08/02/23 15:49 Exam Vital Signs (past 8 hours): - 09/04/23 08:59 Temperature 97 F L Pulse Rate 90 Respiratory Rate 16 Blood Pressure 146/85 H Pulse Oximetry 97 Oxygen Delivery Method Room Air Oxygen Delivery Method Room Air Narrative Exam Narrative: General adult man alert oriented no acute distress Chest nonlabored respiration Extremities warm well perfused Assessment & Plan Assessment and plan (1) Umbilical hernia: Qualifiers: Obstruction and gangrene presence: without obstruction or gangrene Qualified Code(s): K42.9 - Umbilical hernia without obstruction or gangrene Status: Acute Assessment & Plan narrative: 47-year-old male with a symptomatic reducible umbilical hernia here for elective repair. Overview of the operation discussed. Operative risks including infection, hemorrhage, recurrence, chronic pain discussed. Questions have been answered he is in agreement with this plan. Provides his written and verbal consent to proceed.
--- NOTE | 2023-09-04 09:43 | SUR.OPER ---
Supine on padded OR bed, head on pillow, arms secured on padded arm boards at <90 degrees abduction, legs uncrossed, safety belt at thigh, tape over blanket over lower legs.
[2023-09-04] MEDS: CEFAZOLIN 2 GM/100 ML PREMIX 100 ML IV (10:10)
[2023-09-04] MEDS: BUPIVACAINE 0.25% (PF) VIAL 30 ML INJ (10:19)
[2023-09-04 11:46] VITALS: BP 142/90; PULSE 99; RESP 14; TEMP 36.6; O2SAT 92
[2023-09-04 11:52] VITALS: BP 125/83; PULSE 86; RESP 12; TEMP 36.6; O2SAT 95
[2023-09-04 11:56] VITALS: BP 108/73; PULSE 89; RESP 15; TEMP 36.6; O2SAT 93
--- NOTE | 2023-09-04 12:02 | P.OP_ITS ---
Operative Date/Time/Diagnoses Date of procedure: 09/04/23 Time of procedure: 12:02 Pre-op diagnosis: Umbilical hernia Post-op diagnosis: same Procedure & Clinicians Procedure: Open umbilical hernia repair with mesh Same procedure as scheduled: Yes Indications: 47-year-old man who is developed a symptomatic and reducible umbilical hernia here for elective repair. Surgeon: Robson Taylor Anesthesia Type: General Operative Notes Findings: Umbilical hernia containing omentum and viable small bowel Specimen(s): none sent Estimated Blood Loss (mL): 20 Procedure in detail: Patient was brought to the operating room placed supine on the table. Bilateral lower extremity compression devices were applied. General anesthesia was induced and they were intubated with an endotracheal tube. They received 2 g of Ancef prior to skin incision. They were prepped and draped in sterile fashion. A time-out was performed. A curvilinear incision was made inferior to the umbilicus. The subcutaneous tissues were divided. The umbilical hernia was identified and the hernia sac was dissected off the umbilical skin and circumferentially off of the fascia defect. The hernia sac was sharply opened and contained viable omentum and small bowel.. The omentum was reduced back into the abdomen. He had a previous ventral hernia repair with mesh which caused significant fusion of the tissue planes in the periumbilical region. Using blunt dissection I carefully carefully freed the hernia sac from beneath the fascia defect in order to accomodate the mesh. The fascia defect was 5 cm in maximal diameter. A Bard Ventralex ST hernia patch 8 cm was inserted beneath the fascia defect in a sublay position. The mesh was anchored in multiple locations using Ethibond suture to the fascia and the fascial defect was closed over the mesh. The umbilical skin was tacked to the subcutaneous tissues and then the remainder of the subcutaneous tissues were reapproximated using 3 0 Vicry,l skin closed with 4 0 Monocryl followed by the application of Dermabond. Sponge instrument count at the end of the operation was correct. Patient t olerated procedure well was extubated and transferred to postoperative care unit in stable condition. Complications: none Post-operative Condition: stable Disposition: same day surgery
[2023-09-04] MEDS: OXYCODONE IR 5 MG TABLET PO (12:03)
[2023-09-04 12:16] VITALS: BP 117/81; PULSE 85; RESP 14; TEMP 36.7; O2SAT 96
== END 2023-09-04 12:31 | disposition home or self-care (01) ==
PROVIDERS: PCP Family Medicine; Referring Provider Surgery; Visit Provider Surgery
PROC: (CPT 49593; principal; 2023-09-04 09:45)
DX: K42.9 Umbilical hernia without obstruction or gangrene (principal)
CPT/HCPCS: 49593; 82962; J0690; J1100; J1885; J2250; J2405; J2704; J3010

== ENCOUNTER → 2023-10-10 16:20 | Outpatient (CLI) | payer OTHER, SELFPAY ==
[2023-10-10 18:41] LABS: BUN Creatinine Ratio 22.3 (6-22); Blood Urea Nitrogen 21 mg/dL (9-20); Calcium 9.3 mg/dL (8.4-10.2); Carbon Dioxide 26 mmol/L (22-32); Chloride 100 mmol/L (98-107); Estimated Glomerular Filt Rate > 60 mL/min (>60); Glucose 90 mg/dL (70-100); HEMOLYSIS < 15 (0-50); Potassium 4.1 mmol/L (3.4-5.1); Sodium 136 mmol/L (137-145)
== END ==
PROVIDERS: Surgery; PCP Family Medicine; Referring Provider Physician Assistant Medical; Visit Provider Physician Assistant Medical
DX: R10.9 Unspecified abdominal pain (principal)
CPT/HCPCS: 36415; 80048

== ENCOUNTER → 2023-10-16 15:29 | Outpatient (CLI) | payer OTHER, SELFPAY ==
--- NOTE | 2023-10-16 15:29 | DI.CT.S_ITS ---
PROCEDURE: CT ABDOMEN PELVIS W CON INDICATIONS: recurrent ventral hernia? TECHNIQUE: After the administration of oral and IV contrast, axial sections were acquired from the lung bases to the pubic symphysis. Coronal and sagittal reformats were performed. For radiation dose reduction, the following was used: automated exposure control, adjustment of mA and/or kV according to patient size. COMPARISON: [facility], CT, CT ABDOMEN PELVIS W CON, 05/03/2023, 6:10. FINDINGS: Image quality: Excellent. Lung bases: Unremarkable. Heart: No significant findings. ABDOMEN: Liver: No solid mass. Gallbladder: No radiopaque gallstones or wall thickening. Biliary ducts: No biliary dilation. Pancreas: No ductal dilation. Spleen: Size is within normal limits. Adrenal Glands: No adrenal nodules. Kidneys and Ureters: No hydronephrosis. No solid mass. No complex renal cystic lesion which requires follow up. Stomach and Bowel: Normal colonic caliber, without significant wall thickening. Colonic diverticulosis without evidence of diverticulitis. Peritoneum: No abnormal intraperitoneal fluid. No free air. Ventral Wall: Recurring ventral wall hernia containing a short segment of nonobstructed small bowel and fluid with fat. This likely slipped below the more superior hernia mesh. The new neck measures approximately 4.4 cm and the sac measures approximately 13.5 x 5.5 cm. Abdominal Nodes: No retroperitoneal or mesenteric adenopathy by size criteria. Vessels: Aorta and inferior vena cava are normal in size. PELVIS: Pelvic Organs: Unremarkable. Bladder: Unremarkable. Pelvic Nodes: No enlarged lymph nodes. Miscellaneous: Moderate right inguinal hernia containing fat. Trace fat within the left inguinal canal. Bones: Unremarkable. IMPRESSION: Recurrent ventral wall hernia measuring 13.5 x 5.5 cm, containing fluid, short segment nonobstructed small bowel and fat. Dictated by: Jose Bhatia M.D. on 10/16/2023 at 17:06 Approved by: Jose Bhatia M.D. on 10/16/2023 at 17:08
== END ==
PROVIDERS: PCP Family Medicine; Referring Provider Surgery; Visit Provider Surgery
DX: K43.2 Incisional hernia without obstruction or gangrene (principal); R10.9 Unspecified abdominal pain; K57.90 Diverticulosis of intestine, part unspecified, without perforation or abscess without bleeding; K40.90 Unilateral inguinal hernia, without obstruction or gangrene, not specified as recurrent
CPT/HCPCS: 74177; Q9967